=== PATIENT | female | born 1950 | race Caucasian/White ===

== ENCOUNTER 2024-05-12 10:54 | Outpatient (CLI) | payer MEDICARE, OTHER ==
[2024-05-12 12:50] LABS: #Basophils 0.05 10x3/uL (0.0-0.2); %Basophils 0.6 % (0.0-1.0); %Eosinophils 2.5 % (0.0-10.0); %Lymphocytes 33.8 % (21.0-51.0); %Monocytes 7.8 % (0.0-10.0); %Neutrophils 55.2 % (42.0-75.0); Hematocrit 44.3 % (36.0-47.0); Hemoglobin 14.5 g/dL (12.0-16.0); Mean Corpuscular HGB CONC 32.7 g/dL (32.0-36.0); Mean Corpuscular Hemoglobin 30.1 pg (27.0-31.0); Mean Corpuscular Volume 91.9 fL (78.0-98.0); Mean Platelet Volume 10.2 fL (7.4-10.4); Platelet Count 284 10x3/uL (130-400); RBC Distribution Width 12.9 % (11.5-14.5); Red Blood Cell (RBC) Count 4.82 mill/uL (4.20-5.40)
[2024-05-12 13:05] LABS: Anion Gap 12 mmol/L (10-20); BUN (Urea Nitrogen) 15 mg/dL (9.8-20.1); Calc. Creatinine Clearance 0 mL/min (70-130); Calcium 9.6 mg/dL (7.8-10.44); Carbon Dioxide 22 mmol/L (23-31); Chloride 112 mmol/L (98-107); Estimated GFR 90; Glucose 99 mg/dL (83-110); Potassium 4.2 mmol/L (3.5-5.1); Sodium 142 mmol/L (136-145)
[2024-05-12 13:08] LABS: Bilirubin Negative (Negative); Blood, Urine Negative (Negative); Clarity Clear (Clear); Glucose, Urine (Dipstick) Normal (Negative); Ketone, Urine Negative (Negative); Leukocyte Negative Leu/uL (Negative); Nitrite Negative (Negative); Protein, Urine (Dipstick) Negative (Neg-Trace); Urobilinogen Normal mg/dL (Less than 2); pH, Urine 6.5 (5.0-9.0)
[2024-05-12 13:11] LABS: INR-International Normal Ratio 0.9; Prothrombin Time 12.5 sec (12.0-14.7)
== END 2024-05-12 10:55 | disposition home or self-care (01) ==
LOC: LABBT 10:54
PROVIDERS: ATTEND Orthopaedic Surgery
DX: Z01.818 Encounter for other preprocedural examination (principal); M17.0 Bilateral primary osteoarthritis of knee
CPT/HCPCS: 71046; 80048; 81003; 85025; 85610; 87081

== ENCOUNTER 2024-05-17 05:27 | Day surgery (SDC) | payer MEDICARE, OTHER ==
[2024-05-12 11:35] VITALS: BMI 33.6
[2024-05-17] MEDS ORDERED: Sodium Chloride 0.9% 100 ML ONE (06:12)
[2024-05-17] MEDS ORDERED: Vancomycin (BATCH) 1.5 GM/300 ML BAG ONE (06:12)
[2024-05-17] MEDS ORDERED: Tranexamic Acid 1,000 MG/10 ML VIAL ONE ×2 (06:12→10:02)
[2024-05-17] MEDS ORDERED: Lidocaine 1% MPF 2 ML VIAL ONE (06:22)
[2024-05-17] MEDS ORDERED: methylPREDNISolone Acetate 40 mg/ml Vial ONE (06:23)
[2024-05-17] MEDS ORDERED: Bupivacaine PF 0.5% 30 ML VIAL ONE ×2 (06:23→06:35)
[2024-05-17] MEDS ORDERED: Lidocaine 1% (PF) 30 ML VIAL ONE ×2 (06:23→06:35)
[2024-05-17] MEDS ORDERED: EPINEPHrine 1 MG/ML VIAL ONE (06:34)
[2024-05-17] MEDS ORDERED: Midazolam HCl 2 mg/2 ml Vial ONE (06:35)
[2024-05-17] MEDS ORDERED: fentaNYL 50 mcg/mL 1 mL Vial ONE ×2 (06:35→07:13)
[2024-05-17] MEDS ORDERED: CEFAZOLIN 2 GM VIAL ONE (07:11)
[2024-05-17] MEDS ORDERED: Rocuronium Bromide 10 MG/ML (10ML VIAL) ONE (07:13)
[2024-05-17] MEDS ORDERED: PROPOFOL 20 ML ONE (07:13)
[2024-05-17] MEDS ORDERED: Lidocaine 1% PF 5 ML VIAL ONE (07:13)
[2024-05-17] MEDS ORDERED: Clindamycin/D5W 900 mg/50 ml Premix Bag ONE (07:27)
[2024-05-17] MEDS ORDERED: Promethazine HCl 25 MG/ML VIAL IM PRN ×3 (07:30→10:00)
[2024-05-17] MEDS ORDERED: Ondansetron PF 4 MG/2 ML Vial IVP PRN ×2 (07:30→09:28)
[2024-05-17] MEDS ORDERED: traMADol HCl 50 MG TAB PO PRN ×2 (07:30)
[2024-05-17] MEDS ORDERED: HYDROcodone/Acetaminophen 10/325 mg Tablet PO PRN (07:30)
[2024-05-17] MEDS ORDERED: Ropivacaine 0.2% 550 ML 550 ML NERVE BLCK SCH (07:30)
[2024-05-17] MEDS ORDERED: Zolpidem Tartrate 5 MG TAB PO PRN ×2 (07:30→09:28)
[2024-05-17] MEDS ORDERED: fentaNYL 50 mcg/mL 1 mL Vial SLOW IVP PRN (07:30)
[2024-05-17] MEDS ORDERED: PHENYLEPHRINE-NS 100 MCG/ML 10 ML SYRINGE ONE (08:01)
[2024-05-17] MEDS ORDERED: Famotidine/PF 20 mg/2ml Vial ONE (08:29)
[2024-05-17] MEDS ORDERED: SUGAMMADEX SODIUM 200 MG/2 ML VIAL ONE (09:05)
[2024-05-17] MEDS ORDERED: Ondansetron PF 4 MG/2 ML Vial ONE ×2 (09:05→10:05)
[2024-05-17] MEDS ORDERED: diphenhydrAMINE 25 MG CAP PO PRN (09:28)
[2024-05-17] MEDS ORDERED: Acetaminophen 325 MG TAB PO PRN (09:28)
[2024-05-17] MEDS ORDERED: Ondansetron HCl/PF 4 MG/2 ML Vial IVP PRN (10:00)
[2024-05-17] MEDS ORDERED: HYDROmorphone 2 MG/ML VIAL SLOW IVP PRN (10:00)
[2024-05-17] MEDS ORDERED: HYDROmorphone 0.5 MG/0.5 ML SYRINGE ONE (10:02)
[2024-05-17] MEDS ORDERED: fentaNYL PF 100 MCG/2 ML SYRINGE ONE (10:02)
[2024-05-17] MEDS ORDERED: Promethazine HCl 25 MG/ML VIAL ONE (10:05)
[2024-05-17] MEDS ORDERED: Non-Formulary Medication 1 EACH PO PRN (10:40)
[2024-05-17] MEDS: Clindamycin/D5W 900 MG in Premix 1 BAG IVPB SCH (14:36)
[2024-05-17] MEDS: HYDROcodone/Acetaminophen 10/325 mg Tablet PO PRN (14:43)
[2024-05-17] MEDS: Ketorolac Tromethamine 30 MG (1 mL) VIAL IVP SCH (14:44)
[2024-05-17] MEDS: Sodium Chloride 0.9% 1,000 ML IV SCH (16:20)
[2024-05-17] MEDS: Vancomycin (BATCH) 1.5 GM in Premix 1 BAG IVPB SCH (18:00)
[2024-05-17] MEDS: Ferrous Gluconate 324 MG TAB PO SCH (20:00)
[2024-05-17] MEDS: Aspirin 81 mg Enteric Coated Tablet PO SCH (20:00)
[2024-05-17] MEDS: Calcium Carbonate 500 MG ChewTAB PO SCH (20:00)
[2024-05-17] MEDS: Senokot S 8.6-50 MG TAB PO SCH (20:00)
[2024-05-17] MEDS ORDERED: Aspirin 81 mg Enteric Coated Tablet PO SCH (21:00)
[2024-05-18 05:03] LABS: Hematocrit 37.4 % (36.0-47.0); Hemoglobin 12.3 g/dL (12.0-16.0); Mean Corpuscular HGB CONC 32.9 g/dL (32.0-36.0); Mean Corpuscular Hemoglobin 30.5 pg (27.0-31.0); Mean Corpuscular Volume 92.8 fL (78.0-98.0); Platelet Count 230 10x3/uL (130-400); RBC Distribution Width 13.2 % (11.5-14.5); Red Blood Cell (RBC) Count 4.03 mill/uL (4.20-5.40)
[2024-05-18] MEDS: Pantoprazole DR 40 MG TAB PO SCH (09:01)
[2024-05-18] MEDS: Cholecalciferol 1,000 UNITS (25 MCG) TAB PO SCH (09:01)
[2024-05-18] MEDS: Finasteride 5 MG TAB PO SCH (09:04)
[2024-05-18] MEDS: Multivitamin W/ Minerals 1 TAB PO SCH (09:05)
[2024-05-18] MEDS: Nebivolol HCl 5 MG TAB PO SCH (09:05)
[2024-05-18] MEDS: Docusate 100 MG CAP PO SCH (09:06)
[2024-05-18 11:30] VITALS: BP 159/88; TEMP 97.9
== END 2024-05-18 12:55 | disposition home or self-care (01) ==
LOC: SDC 05:27 → SURG A 12:41 → SDC 05-18 12:55
PROVIDERS: ATTEND Orthopaedic Surgery
PROC: 0SRC0JZ Replacement of Right Knee Joint with Synthetic Substitute, Open Approach (ICD-10-PCS; principal; 2024-05-17)
PROC: 0S9D3ZZ Drainage of Left Knee Joint, Percutaneous Approach (ICD-10-PCS; 2024-05-17)
PROC: 3E0T3BZ Introduction of Anesthetic Agent into Peripheral Nerves and Plexi, Percutaneous Approach (ICD-10-PCS; 2024-05-17)
DX: M17.0 Bilateral primary osteoarthritis of knee (principal); I10 Essential (primary) hypertension; I82.402 Acute embolism and thrombosis of unspecified deep veins of left lower extremity; H26.9 Unspecified cataract; K76.0 Fatty (change of) liver, not elsewhere classified; N81.10 Cystocele, unspecified; Z90.89 Acquired absence of other organs; Z88.0 Allergy status to penicillin; Z88.1 Allergy status to other antibiotic agents; Z88.8 Allergy status to other drugs, medicaments and biological substances; Z79.82 Long term (current) use of aspirin
CPT/HCPCS: 0055T; 20610; 27447; 64448; 36415; 85027; 87070; 87205; 88304; 88313; 88341; 88342; A4306; C1713; C1776; C1889; J0171; J0665; J1010; J1885; J2250; J2405; J2550; J2704; J2795; J3010; J3370; J3490